=== PATIENT | female | born 1950 | race Caucasian/White ===

== ENCOUNTER 2021-09-12 18:13 | Inpatient (IN) | payer MEDICARE, MEDICAID, SELFPAY ==
--- NOTE | ~2021-09-12 | XR_ITS ---
EXAMINATION: XR foot RT min 3V DATE: 09/13/2021 02:32 INDICATION: Right foot ulcer and pain TECHNIQUE: Dorsoplantar, lateral, and 2 oblique views of the right foot were obtained. COMPARISON: None. FINDINGS: There is soft tissue swelling of the foot near the fifth metatarsal and involving the fifth toe. An old healed fracture is seen in the distal shaft of the fifth metatarsal. No definite acute u nderlying osseous abnormality is identified. 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 No acute fracture is identified. IMPRESSION: 1. Soft tissue swelling of the lateral foot near the fifth metatarsal and fifth toe without definite acute osseous abnormality. Reviewed, dictated and finalized at location A.
--- NOTE | ~2021-09-12 | US_ITS ---
EXAMINATION:US venous doppler LE BI INDICATION:Evaluate for reflux. Chronic wounds. TECHNIQUE: Multiple grayscale, color flow and Doppler images of the right lower extremity deep venous systems were obtained and reviewed. COMPARISON:No prior studies for comparison. FINDINGS: Study is limited. There is normal flow and compressibility in the right common femoral vein . There is compressibility in the right femoral vein. The remainder of the examination was not perfor med due to patient refusal. IMPRESSION: 1: Unremarkable limited right lower extremity venous Doppler. The right femoral, popliteal, posterior tibial and peroneal veins are not adequately examined. Reviewed, dictated and finalized at location B. IMPRESSION: 1: Unremarkable limited right lower extremity venous Doppler. The right femoral , popliteal, posterior tibial and peroneal veins are not adequately examined.
--- NOTE | ~2021-09-12 | XR_ITS ---
EXAM: XR tibia fibula LT 2V DATE: 09/12/2021 19:37 HISTORY: open sore . COMPARISON: None available. FINDINGS: Decreased mineralization. No fracture or dislocation. No lytic or blastic lesion. Degenera tive changes in the left knee and ankle. No erosion or periosteal change. Diffuse muscle atrophy. Pos sible soft tissue defect anteriorly at the level of the proximal tibia. IMPRESSION: No acute osseous finding in the left tibia or fibula. Reviewed, dictated and finalized at location K.
--- NOTE | ~2021-09-12 | US_ITS ---
EXAMINATION: US venous doppler UE LT DATE: 09/13/2021 13:27 INDICATION: Left upper limb deep vein thrombosis. TECHNIQUE: Grayscale ultrasound images without and with compression and Doppler ultrasound images of the left upper extremity veins were obtained. COMPARISON: None. FINDINGS: The visualized portions of the left internal jugular vein, subclavian vein, axillary vein, brachial v eins, basilic vein, cephalic vein, radial vein, and ulnar vein are patent. IMPRESSION: 1. No deep venous thrombosis. Reviewed, dictated and finalized at location A.
[2021-09-12 18:20] VITALS: BP 121/68; PULSE 82; RESP 18; TEMP 36.8; O2SAT 99
[2021-09-12 19:17] VITALS: TEMP 37.5
--- NOTE | 2021-09-12 20:04 | PC.NURSE ---
Pt resistant to all care. When attempting to draw blood pt asked several times to hold arm still and allow blood to be drawn. pt reminded of unit rules regarding verbally abusive language. Pt states her back hurts Pt has been repositioned and a pillow placed behind her back for comfort. Pt is refusing to get in to a gown and allow this RN to change her gown.
[2021-09-12 20:14] VITALS: BP 142/71; PULSE 77; RESP 24; O2SAT 98
--- NOTE | 2021-09-12 20:20 | ED.FALL ---
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 She has barely been able to get up or out of bed. No fevers or chills. According to the patient, she sees a chronic pain doctor for her legs, and she has been having more pain in her legs than usual, though she states that the skin findings are not worsening. Related Data Allergies Allergy/AdvReac Type Severity Reaction Status Date / Time No Known Allergies Allergy Verified 09/12/21 20:57 Review of Systems Review of Systems: CONST: No fever. HEENT: No sore throat C/V: No chest pain RESP: No cough GI: No nausea vomiting : No dysuria. M/S: Bilateral leg pain SKIN: Dried scabs and ulcers on leg NEURO: [No headache or focal numbness or weakness] PSYCH: [No depression] [facility] Past Medical History Medical History Back pain Surgical History Surgical History History of back surgery Exam Narrative: EXAMINATION OF ORGAN SYSTEMS/BODY AREAS: Constitutional: Vital signs per nursing GENERAL:[No acute distress, non-toxic appearing.] Unkempt HEAD: Normal with no signs of head trauma. EYES: EOMI, conjunctiva normal ENT: Hearing grossly intact LUNGS: Nonlabored breathing. HEART: [Regular rate and rhythm] ABD: [Soft], nondistended : No decubitus ulcers; old feces in diaper EXT: Normal range of motion, scabs and dried skin on both legs, ulcer LLE and R foot ulcer SKIN: per above NEURO: [Alert and oriented x 3. No gross focal sensory or strength deficits.] PSYCH: Normal affect Course Course Emergency Course: 70-year-old female presenting with bilateral leg ulcers chronic, she has been falling more frequently at home, vital signs stable, exam shows ulcers worst on the left lower leg, and an ulcer on the right foot, differential includes osteomyelitis versus pressure ulcers versus nonhealing wounds as patient has not been able to get wound care or get it cleaned or taken care of, doubt skin/soft tissue infection without overlying redness or swelling or tenderness to palpation, I will obtain labs here for further evaluation and x-rays, these showed minimally elevated WBC, however I have concerns that the patient is not going to be able to thrive at home alone, given her unkempt situation and undressed and dirty wounds, I discussed this with her sister over the phone who states that she feels the patient really should go to a nursing or assisted living, discussed with the patient who was amenable to staying in the hospital for further placement. Discussed with hospitalist who is agreeable to taking the patient. Vital Signs Vital signs: Vital Signs Temperature 98.2 F 09/12/21 18:20 Pulse Rate 82 09/12/21 18:20 Respiratory Rate 18 09/12/21 18:20 Blood Pressure 121/68 09/12/21 18:20 Pulse Oximetry 99 09/12/21 18:20 Temperature 98.3 F 09/13/21 05:40 Pulse Rate 102 H 09/13/21 05:40 Respiratory Rate 20 09/13/21 05:40 Blood Pressure 174/81 H 09/13/21 05:40 Pulse Oximetry 100 09/13/21 05:40 MDM - Fall Differential Diagnosis Differential diagnosis: Likely other Lab Data Result diagrams: 09/12/21 20:09 09/12/21 20:39 Labs: Lab Results 09/12/21 09/12/21 09/12/21 Range/Units 20:09 20:39 20:39 WBC 10.5 H (4.5-10.0) K/mm3 RBC 3.30 L (4.2-5.4) M/mm3 Hgb 10.3 L (12.0-15.0) g/dL Hct 32.8 L (37.0-47.0) % MCV 99.4 (80-100) fl MCH 31.2 (26-34) pg MCHC 31.4
[2021-09-12 20:22] LABS: Basophils Absolute Auto 0.1 K/mm3 (0.0-0.1); Basophils Percent Auto 0.5 % (0.2-1.2); Eosinophils Percent Auto 0.4 % (0-4.4); Hematocrit 32.8 % (37.0-47.0); Hemoglobin 10.3 g/dL (12.0-15.0); Immature Granulocyte Absolute 0.05 K/mm3 (0.00-0.031); Immature Granulocyte Percent A 0.5 % (0-0.5); Lymphocytes Absolute Auto 2.21 K/mm3 (0.9-3.2); Lymphocytes Percent Auto 21.1 % (18.3-44.2); Mean Corpuscular HGB Conc 31.4 g/dl (32-36); Mean Corpuscular Hemoglobin 31.2 pg (26-34); Mean Corpuscular Volume 99.4 fl (80-100); Mean Platelet Volume 10.2 fl (7.4-10.4); Monocytes Absolute Auto 0.6 K/mm3 (0.1-0.6); Monocytes Percent Auto 5.4 % (2.6-8.5); Neutrophils Absolute Auto 7.5 K/mm3 (1.3-6.7); Neutrophils Percent Auto 72.1 % (45.5-73.1); Platelet Count Result 334 k/mm3 (150-375); White Blood Count 10.5 K/mm3 (4.5-10.0)
--- NOTE | 2021-09-12 20:54 | PC.NURSE ---
delmi erp dr bose - tylenol 1gm stat
[2021-09-12] MEDS: Please add drug allergy info to patient profile. 1 EACH XX (21:03)
[2021-09-12 21:11] LABS: Anion Gap 4 mmol/L (8-16); Blood Urea Nitrogen 18 mg/dL (7-17); CRP 1.8 mg/dL (<1.0); Calcium 8.2 mg/dL (8.4-10.2); Carbon Dioxide 27 mmol/L (22-30); Chloride 101 mmol/L (98-107); Estimated CRCL calculation 56 ml/min; Estimated Glomerular Filt Rate > 60; Glucose 85 mg/dL (65-110); Potassium 3.9 mmol/L (3.4-5.0); Sodium 132 mmol/L (137-145)
[2021-09-12 21:39] VITALS: BP 124/64; PULSE 88; RESP 18; O2SAT 100
[2021-09-12 21:58] LABS: Erythrocyte Sedimentation Rate 98 mm/hr (0-20)
[2021-09-12 23:59] LABS: SARS-CoV-2 RNA PCR Negative
[2021-09-13] VITALS (9 sets, daily range): BP systolic 125–177; BP diastolic 61–95; PULSE 75–106; RESP 16–22; TEMP 36.5–37.2; O2SAT 97–100; BMI 15.3
--- NOTE | 2021-09-13 06:22 | PC.NURSE ---
This patient, Kelsey Randolph, was admitted to 3 Med Surg Room 306-01. Patient/family oriented to hospital policies and general routines including ID bracelet, bed and alarms, visiting hours, pain management, procedures, bathroom and other care routines, personal items, smoking policy, room service/diet, and visiting hours. Information on how to activate the Rapid Response Team has been discussed. Patient/Family are encouraged to report perceived risks to care and to ask questions if they do not understand what they are told or what they should do.
--- NOTE | 2021-09-13 06:50 | PC.NURSE ---
Pt is a poor historian. Plant Security Guard was not able to obtain information and pt was yelling at insurance writer to shut the door. Asked pt if she knew her home medications. Pt said yes and then was unable to tell insurance writer home medications. Spoke with pts sister Alejandra regarding patient and admission. Alejandra was able to provide some information about pt, but did not know pts home medications. Alejandra stated that a home health lady comes 3 times a week but it has been difficult for her to care for Kelsey as Kelsey is stubborn. Plant Security Guard also spoke with Alejandra regarding patient visitor hours.
--- NOTE | 2021-09-13 08:08 | PM.IMHP ---
H&P: HPI History of Present Illness Date/Time: 09/13/21 08:08 Kelsey is a 70-year-old female who reports that [facility]. However I do not have records from the [facility] records within the system. Patient is limited and a poor historian when attempting to obtain information. She refuses to answer questions. She also refuses for a physical assessment. Patient repeatedly asked for IV narcotics during my evaluation and discussion. She did not appear to be in significant amount of pain however she does appear frail and ill-appearing with minimal tremors to the upper extremities that were visualized. Patient appears unkempt. Patient did refuse a venous Doppler as well as an FABIENNE this morning. Patient also refused wound care nurse to further evaluate her for her bilateral lower extremities. Med rec is unable to be completed, will have nursing staff attempt to call patient's pharmacy. A drug screen was performed in the hospital as patient reported that she receives chronic narcotics from the [facility] however no narcotics were found in her system. Benzos were found. Patient appears to be having drug-seeking behaviors. Patient is providing limited information such as which pharmacy she utilizes for her medications. Unable to obtain accurate medication list. Patient does not seem to be compliant with medications. Chief Complaint: Bilateral lower extremity wounds Review of Systems Review of Systems: All systems reviewed & are unremarkable except as noted in HPI and below PMFSH Past Medical History Medical History Back pain Surgical History Surgical History History of back surgery Social History Social History Smoking status: Current every day smoker Tobacco type: cigarettes Second hand tobacco smoke exposure: Yes Alcohol intake: never Substance use: never Substance use type: does not use Spiritual care concerns: No Meds Home Medications and Allergies Allergies Allergy/AdvReac Type Severity Reaction Status Date / Time No Known Allergies Allergy Verified 09/12/21 20:57 Vital Signs Vital Signs - 24 hr 09/12/21 18:20 09/12/21 19:17 09/12/21 20:14 Temperature 98.2 F 99.5 F Pulse Rate 82 77 Respiratory Rate 18 24 H Blood Pressure 121/68 142/71 H Pulse Oximetry 99 98 09/12/21 21:39 09/13/21 01:18 09/13/21 05:40 Temperature 98.3 F Pulse Rate 88 106 H 102 H Respiratory Rate 18 22 H 20 Blood Pressure 124/64 177/61 H 174/81 H Pulse Oximetry 100 100 Exam Narrative: General: No acute distress. Unable to perform an accurate physical exam due to the patient's compliance. Unable to listen to heart, lungs or perform skin assessment. Patient is awake, alert and oriented to person, place and time with clear speech. Mental Status: Awake, alert and oriented to person, place, and time with clear speech. Skin: Unable to obtain Head: Normocephalic and atraumatic. Eyes: Conjunctivae are clear without exudates or hemorrhage. Sclera is non-icteric. EOM are intact, PERRLA. Ears: The external ear and canal are non-tender and without swelling or discharge. Throat: Oral mucosa pink and moist with poor dentition. Tongue midline. Neck: Trachea midline. Cardiac: Unable to obtain Respiratory: Chest wall symmetric, nontender and without deformity or trauma. Respirations even and unlabored. Abdominal: Unable to obtain Spine: Neck and back with grossly normal curvature, no deformity in appearance or signs of trauma. Extremities: Upper and lower extremities atraumatic without tenderness or deformity. Full range of motion and muscle strength 4/5 to all extremities bilaterally. Neurological: Full and symmetric motor and light touch sensation bilaterally. Cranial nerves II-XII grossly intact. H&P: Results La
[2021-09-13 09:37] LABS: Albumin Level 3.8 g/dL (3.5-5.1)
[2021-09-13 09:47] LABS: Prealbumin 15.1 mg/dL (17.6-36.0)
[2021-09-13] MEDS: ACETAMINOPHEN 325 MG TABLET 650 MG PO (10:07)
[2021-09-13] MEDS: SODIUM CHLORIDE 0.9% IV 1,000 ML 50 ML IV CONT (10:09)
[2021-09-13] MEDS: NICOTINE (*PBKC) 14 MG PATCH 1 PATCH TRANSDERM (10:36)
[2021-09-13 11:23] LABS: Amphetamine Screen Urine Negative (Negative); Barbiturate Screen Urine Negative (Negative); Benzodiazepines Screen Urine Positive (Negative); Cannabinoid Screen Urine Negative (Negative); Cocaine Screen Urine Negative (Negative); Methadone Screen Urine Negative (Negative); Opiate Screen Urine Negative (Negative); Phencyclidine Screen Urine Negative (Negative)
--- NOTE | 2021-09-13 11:31 | PCNSR ---
On 09/13/21, the student, Albino Gutierrez, provided care and completed [facility] documentation on this patient. I have reviewed the student's documentation and agree with the findings.
--- NOTE | 2021-09-13 12:23 | ECHO_ITS ---
Patient Info Name: Kelsey Randolph Age: 70 years : 1950 Gender: Female Ht: 63 in Wt: 86 lbs BSA: 1.30 m2 HR: 82 bpm BP: 145 / 95 mmHg Heart Rhythm: Sinus Rhythm Technical Quality: Fair Exam Date: 09/13/2021 3:35 PM Exam Location: [facility] Pulmonary Exam Room: [facility] Patient Status: Inpatient Admit Date: 09/13/2021 Staff Ordering Physician: Kary Navarrete APRN Leather Grainer: Nikole Joshua RDCS Attending Provider: Vida Osorio DO Referring Physician: Landon PALOMO; Exam Type: CA echo doppler color flow Study Info Indications - SOB Complete two-dimensional, color flow and Doppler transthoracic echocardiogram is performed. Summary 1. Complete two-dimensional, color flow and Doppler transthoracic echocardiogram is performed. 2. Left ventricular chamber dimension is normal. 3. Left ventricular systolic function is normal, estimated at 65-70%. 4. There is mildly increased left ventricular wall thickness. 5. The left ventricular diastolic function is grade I diastolic dysfunction. 6. The basal inferoseptal, and mid inferoseptal are hypokinetic. 7. Left atrial chamber dimension is mildly enlarged. 8. There is mild mitral valve regurgitation. 9. The mitral valve has thickened leaflets. 10. There is moderate aortic valve sclerosis. 11. There is mild tricuspid valve regurgitation. 12. Mild pulmonary hypertension, estimated pulmonary arterial systolic pressure is 40 mmHg. Left Ventricle Left ventricular chamber dimension is normal. Left ventricular systolic function is normal, estimated at 65-70%. There is mildly increased left ventricular wall thickness. The left ventricular diastolic function is grade I diastolic dysfunction. The basal inferoseptal, and mid inferoseptal are hypokinetic. All other olivas appear normal. Right Ventricle Right ventricular chamber dimension is normal. Right ventricular systolic function is normal. Left Atria Left atrial chamber dimension is mildly enlarged. Right Atria Right atrial chamber dimension is normal. Atrial Septum Intact interatrial septum visualized by color flow imaging. Aortic Valve The aortic valve is trileaflet. There is moderate aortic valve sclerosis. There is no aortic valve stenosis. There is trace aortic valve regurgitation. Pulmonic Valve The pulmonic valve is normal. There is no pulmonic valve stenosis. There is trace pulmonic regurgitation. Mitral Valve The mitral valve has thickened leaflets. There is no mitral valve stenosis. There is mild mitral valve regurgitation. Tricuspid Valve The tricuspid valve leaflets are normal. There is no significant tricuspid valve stenosis. There is mild tricuspid valve regurgitation. Mild pulmonary hypertension, estimated pulmonary arterial systolic pressure is 40 mmHg. Pericardium/Pleural The pericardium appears normal. There is trivial pericardial effusion. Inferior Vena Cava Dilated inferior vena cava with <50% collapse upon inspiration consistent with elevated right atrial pressure, 10 mmHg. Aorta The aortic root size at the sinus of Valsalva is normal. Left Ventricular Outflow Tract Name Value Normal LVOT 2D LVOT Diameter 2.0
--- NOTE | 2021-09-13 14:01 | PCPTNOTE ---
Attempted physical therapy evaluation, patient and patient's family refused therapy at this time due to patient not getting her medications at this time and Bilateral LE ulcers. Will Follow.
--- NOTE | 2021-09-13 14:07 | PCOTNOTE ---
Attempted occupational therapy evaluation, patient and patient's family refused therapy at this time due to patient not getting her medications at this time and Bilateral LE ulcers. Will Follow.
[2021-09-13] MEDS: IBUPROFEN 400 MG TABLET PO (14:37)
[2021-09-13] MEDS: FLUTICASONE/SALMETEROL 115-21 MCG INHALER 1 PUFF 2 PUFF INHALATION (20:10)
[2021-09-13] MEDS: GABAPENTIN 300 MG CAPSULE PO (21:12)
[2021-09-13] MEDS: DOXEPIN HCL 10 MG CAPSULE PO (21:12)
[2021-09-13] MEDS: TIZANIDINE HCL 2 MG TABLET PO (21:12)
[2021-09-14] VITALS (7 sets, daily range): BP systolic 128–169; BP diastolic 60–86; PULSE 63–110; RESP 18–20; TEMP 36.6; O2SAT 94–100
[2021-09-14] MEDS: GABAPENTIN 300 MG CAPSULE PO ×3 (05:31→21:13)
[2021-09-14] MEDS: TIZANIDINE HCL 2 MG TABLET PO ×3 (05:31→21:13)
[2021-09-14 06:22] LABS: Basophils Percent Auto 0.4 % (0.2-1.2); Eosinophils Absolute Auto 0.1 K/mm3 (0-0.3); Eosinophils Percent Auto 0.6 % (0-4.4); Hematocrit 30.2 % (37.0-47.0); Hemoglobin 9.8 g/dL (12.0-15.0); Immature Granulocyte Absolute 0.03 K/mm3 (0.00-0.031); Immature Granulocyte Percent A 0.4 % (0-0.5); Lymphocytes Absolute Auto 1.69 K/mm3 (0.9-3.2); Lymphocytes Percent Auto 21.6 % (18.3-44.2); Mean Corpuscular HGB Conc 32.5 g/dl (32-36); Mean Corpuscular Volume 95.6 fl (80-100); Mean Platelet Volume 9.4 fl (7.4-10.4); Monocytes Absolute Auto 0.8 K/mm3 (0.1-0.6); Monocytes Percent Auto 10.4 % (2.6-8.5); Neutrophils Absolute Auto 5.2 K/mm3 (1.3-6.7); Neutrophils Percent Auto 66.6 % (45.5-73.1); Platelet Count Result 282 k/mm3 (150-375); Red Blood Count 3.16 M/mm3 (4.2-5.4); Red Cell Distribution Width 15.3 % (11.5-14.5); White Blood Count 7.8 K/mm3 (4.5-10.0)
[2021-09-14 06:41] LABS: Lactic Acid Reflex 0.8 mmol/L (0.7-2.0)
[2021-09-14 06:54] LABS: Alanine Aminotransferase 16 U/L (6-35); Albumin Level 2.7 g/dL (3.5-5.1); Alkaline Phosphatase 79 U/L (38-126); Anion Gap 4 mmol/L (8-16); Aspartate Amino Transferase 32 U/L (14-36); Bilirubin,Total 0.3 mg/dL (0.2-1.3); Blood Urea Nitrogen 9 mg/dL (7-17); CRP 2.7 mg/dL (<1.0); Calcium 7.7 mg/dL (8.4-10.2); Carbon Dioxide 31 mmol/L (22-30); Chloride 98 mmol/L (98-107); Estimated CRCL calculation 47 ml/min; Estimated Glomerular Filt Rate > 60; Glucose 117 mg/dL (65-110); Magnesium 1.8 mg/dL (1.6-2.3); Potassium 2.6 mmol/L (3.4-5.0); Sodium 133 mmol/L (137-145)
[2021-09-14 07:40] LABS: Thyroid Stimulating Hormone Reflex 0.608 uIU/mL (0.465-4.68)
[2021-09-14] MEDS: FLUTICASONE/SALMETEROL 115-21 MCG INHALER 1 PUFF 2 PUFF INHALATION ×2 (08:27→19:43)
[2021-09-14] MEDS: POTASSIUM CHLORIDE 20 MEQ TABLET.ER 40 MEQ PO (10:04)
[2021-09-14] MEDS: POTASSIUM CHLORIDE INJ 40 MEQ in SODIUM CHLORIDE 0.9% IV 500 ML 130 MEQ IVPB ×2 (10:04→10:06)
[2021-09-14] MEDS: POTASSIUM CHLORIDE 10 MEQ TABLET.ER PO (10:05)
[2021-09-14] MEDS: NICOTINE (*PBKC) 14 MG PATCH 1 PATCH TRANSDERM (10:05)
--- NOTE | 2021-09-14 11:43 | PM.IMPN ---
Progress Note: A&P Assessment and Plan (1) Bilateral leg ulcer: Qualifiers: Non-pressure ulcer stage: limited to breakdown of skin Qualified Code(s): L97.911 - Non-pressure chronic ulcer of unspecified part of right lower leg limited to breakdown of skin; L97.921 - Non-pressure chronic ulcer of unspecified part of left lower leg limited to breakdown of skin Code(s): L97.919 - Non-pressure chronic ulcer of unspecified part of right lower leg with unspecified severity; L97.929 - Non-pressure chronic ulcer of unspecified part of left lower leg with unspecified severity Status: Acute Assessment and Plan: Monitor I&Os, vital signs, neuro status and patient is a fall risk Monitor serum electrolytes, CBC, WBC, temperature curve and follow cultures Provide IV fluid resuscitation for hemodynamic stability IV Vancomycin, consult pharmacy to dose, send Vancomycin trough levels before 4th dose, and Zosyn 3.375mg Q 6 hours. Will transition IV antibiotics to oral on 09/15/2021. Echocardiogram revealed thickened leaflets with an LVEF is 65-70 % with pulmonary hypertension. Obtain bilateral lower extremity venous Dopplers and ABIs, patient refused FABIENNE and only allowed 1 extremity did have a venous Doppler. P.r.n. Tylenol, Zofran, and melatonin (2) Frequent falls: Code(s): R29.6 - Repeated falls Status: Acute Assessment and Plan: PT/OT consulted for evaluation and treatment Case management consulted for possible placement (3) Protein-calorie malnutrition, severe: Code(s): E43 - Unspecified severe protein-calorie malnutrition Status: Acute Assessment and Plan: Consulted registered dietitian Regular diet, consider adding supplements (4) Hyponatremia: Code(s): E87.1 - Hypo-osmolality and hyponatremia Status: Acute Assessment and Plan: Monitor serum electrolytes (5) Sepsis: Code(s): A41.9 - Sepsis, unspecified organism Status: Acute Assessment and Plan: 2/2 above, bilateral leg ulcers (6) Tobacco abuse: Code(s): Z72.0 - Tobacco use Status: Acute Assessment and Plan: Smoking cessation counseling given for 3 minutes, will add nicotine patch daily (7) Drug-seeking behavior: Code(s): Z76.5 - Malingerer [conscious simulation] Status: Acute Assessment and Plan: Drug screen positive for Benzos Negative for Narcotics, patient reports she follows pain clinic and requesting for IV narcotics Subjective Date/time seen: 09/14/21 11:43 Patient is oddly pleasant this morning. Patient reports that she slept very well last night and is happy she received some of her medications this morning. Discussed that her potassium was at 2.9. And her echocardiogram results with pulmonary hypertension and a normal LVEF. Patient continues on antibiotics for multiple leg ulcers to bilateral lower extremities. Patient reports she is okay not having further workup at this point for her legs. She refused the FABIENNE yesterday and only received half of the venous Doppler to 1 extremity. Patient will continue on oral antibiotics today with bactrim. Review of Systems Review of Systems: All systems reviewed & are unremarkable except as noted in HPI and below Exam Narrative: General: No acute distress. Unable to perform an accurate physical exam due to the patient's compliance. Unable to listen to heart, lungs or perform skin assessment. Patient is awake, alert and oriented to person, place and time with clear speech. Mental Status: Awake, alert and oriented to person, place, and time with clear speech. Skin: Unable to obtain Head: Normocephalic and atraumatic. Eyes: Conjunctivae are clear without exudates or hemorrhage. Sclera is non-icteric. EOM are intact, PERRLA. Ears: The external ear and canal are non-tender and without swelling or discharge. Throat: Oral mucosa pink and moist with poor dentition. Tongue midline. Neck: Trachea
--- NOTE | 2021-09-14 14:39 | PC.NURSE ---
Pt's sister, Ira, called wanting an update. I answered her questions and gave her the information she was seeking. She stated that she would speak with their other sister and see if they could persuade her to allow treatment, testing, etc. that pt refused up to this point.
[2021-09-14] MEDS: SODIUM CHLORIDE 0.9% IV 100 ML 50 ML (15:55)
[2021-09-14] MEDS: DOXEPIN HCL 10 MG CAPSULE PO (20:41)
[2021-09-14] MEDS: IBUPROFEN 400 MG TABLET PO (20:47)
[2021-09-15 05:42] VITALS: BP 153/70; PULSE 85; RESP 20; TEMP 36.4; O2SAT 100
[2021-09-15] MEDS: TIZANIDINE HCL 2 MG TABLET PO (05:50)
[2021-09-15] MEDS: GABAPENTIN 300 MG CAPSULE PO (05:50)
[2021-09-15 06:24] LABS: Basophils Percent Auto 0.5 % (0.2-1.2); Eosinophils Absolute Auto 0.1 K/mm3 (0-0.3); Eosinophils Percent Auto 1.2 % (0-4.4); Hematocrit 30.6 % (37.0-47.0); Hemoglobin 9.7 g/dL (12.0-15.0); Immature Granulocyte Absolute 0.06 K/mm3 (0.00-0.031); Immature Granulocyte Percent A 0.7 % (0-0.5); Lymphocytes Percent Auto 23.8 % (18.3-44.2); Mean Corpuscular HGB Conc 31.7 g/dl (32-36); Mean Corpuscular Hemoglobin 31.4 pg (26-34); Mean Platelet Volume 9.6 fl (7.4-10.4); Monocytes Absolute Auto 0.9 K/mm3 (0.1-0.6); Neutrophils Absolute Auto 5.6 K/mm3 (1.3-6.7); Neutrophils Percent Auto 63.8 % (45.5-73.1); Platelet Count Result 270 k/mm3 (150-375); Red Blood Count 3.09 M/mm3 (4.2-5.4); Red Cell Distribution Width 15.7 % (11.5-14.5); White Blood Count 8.8 K/mm3 (4.5-10.0)
[2021-09-15 06:39] LABS: Alanine Aminotransferase 20 U/L (6-35); Albumin Level 2.6 g/dL (3.5-5.1); Alkaline Phosphatase 77 U/L (38-126); Anion Gap 3 mmol/L (8-16); Aspartate Amino Transferase 44 U/L (14-36); Bilirubin,Total < 0.1 mg/dL (0.2-1.3); Blood Urea Nitrogen 12 mg/dL (7-17); Calcium 7.8 mg/dL (8.4-10.2); Carbon Dioxide 29 mmol/L (22-30); Chloride 108 mmol/L (98-107); Estimated CRCL calculation 55 ml/min; Estimated Glomerular Filt Rate > 60; Glucose 90 mg/dL (65-110); Potassium 3.7 mmol/L (3.4-5.0); Sodium 140 mmol/L (137-145)
[2021-09-15 08:00] VITALS: O2SAT 100
[2021-09-15] MEDS: FLUTICASONE/SALMETEROL 115-21 MCG INHALER 1 PUFF 2 PUFF INHALATION (08:13)
[2021-09-15 08:14] VITALS: O2SAT 94
[2021-09-15] MEDS: POTASSIUM CHLORIDE 20 MEQ TABLET.ER 40 MEQ PO (09:52)
[2021-09-15] MEDS: ACETAMINOPHEN 325 MG TABLET 650 MG PO (09:52)
[2021-09-15] MEDS: POTASSIUM CHLORIDE 10 MEQ TABLET.ER PO (09:52)
--- NOTE | 2021-09-15 09:58 | PM.DS ---
DS: Admitting Diagnosis Discharge Date 09/15/21 Admitting Diagnosis Bilateral chronic leg ulcers DS: Discharge Diagnosis Discharge Diagnosis (1) Bilateral leg ulcer: Qualifiers: Non-pressure ulcer stage: limited to breakdown of skin Qualified Code(s): L97.911 - Non-pressure chronic ulcer of unspecified part of right lower leg limited to breakdown of skin; L97.921 - Non-pressure chronic ulcer of unspecified part of left lower leg limited to breakdown of skin Code(s): L97.919 - Non-pressure chronic ulcer of unspecified part of right lower leg with unspecified severity; L97.929 - Non-pressure chronic ulcer of unspecified part of left lower leg with unspecified severity Status: Acute Assessment and Plan: Monitor I&Os, vital signs, neuro status and patient is a fall risk Monitor serum electrolytes, CBC, WBC, temperature curve and follow cultures Provide IV fluid resuscitation for hemodynamic stability IV Vancomycin, consult pharmacy to dose, send Vancomycin trough levels before 4th dose, and Zosyn 3.375mg Q 6 hours. Will transition IV antibiotics to oral on 09/15/2021. Echocardiogram revealed thickened leaflets with an LVEF is 65-70 % with pulmonary hypertension. Obtain bilateral lower extremity venous Dopplers and ABIs, patient refused FABIENNE and only allowed 1 extremity did have a venous Doppler. P.r.n. Tylenol, Zofran, and melatonin --chronic patient will need to [facility]up [facility] in the outpatient basis. (2) Frequent falls: Code(s): R29.6 - Repeated falls Status: Acute Assessment and Plan: PT/OT consulted for evaluation and treatment Case management consulted for possible placement (3) Protein-calorie malnutrition, severe: Code(s): E43 - Unspecified severe protein-calorie malnutrition Status: Acute Assessment and Plan: Consulted registered dietitian Regular diet, consider adding supplements (4) Hyponatremia: Code(s): E87.1 - Hypo-osmolality and hyponatremia Status: Acute Assessment and Plan: Monitor serum electrolytes (5) Sepsis: Code(s): A41.9 - Sepsis, unspecified organism Status: Acute Assessment and Plan: 2/2 above, bilateral leg ulcers (6) Tobacco abuse: Code(s): Z72.0 - Tobacco use Status: Acute Assessment and Plan: Smoking cessation counseling given for 3 minutes, will add nicotine patch daily (7) Drug-seeking behavior: Code(s): Z76.5 - Malingerer [conscious simulation] Status: Acute Assessment and Plan: Drug screen positive for Benzos Negative for Narcotics, patient reports she follows pain clinic and requesting for IV narcotics DS: Summary Hospital Course Reason for hospitalization: Pain to bilateral lower extremities/wounds Hospital Course: 70-year-old female who reports that [facility]. However I do not have records from the [facility] records within the system. Patient is limited and a poor historian when attempting to obtain information. She refuses to answer questions. She also refuses for a physical assessment. Patient repeatedly asked for IV narcotics during my evaluation and discussion. She did not appear to be in significant amount of pain however she does appear frail and ill-appearing with minimal tremors to the upper extremities that were visualized. Patient appears unkempt. Patient did refuse a venous Doppler as well as an FABIENNE this morning. Patient also refused wound care nurse to further evaluate her for her bilateral lower extremities. Med rec is unable to be completed, will have nursing staff attempt to call patient's pharmacy. A drug screen was performed in the hospital as patient reported that she receives chronic narcotics from the [facility] however no narcotics were found in her system. Benzos were found. Patient appears to be having drug-seeking behaviors. Patient was providing limit
== END 2021-09-15 11:56 | disposition home or self-care (01) | DRG 871 ==
LOC: ANHED 21:35 → ANH3MEDSUR 09-13 04:18
PROVIDERS: Admitting Provider Internal Medicine; Emergency Provider Emergency Medicine; PCP Internal Medicine; Visit Provider Nurse Practitioner Family
DX: A41.9 Sepsis, unspecified organism (principal); E43 Unspecified severe protein-calorie malnutrition; L97.911 Non-pressure chronic ulcer of unspecified part of right lower leg limited to breakdown of skin; E87.1 Hypo-osmolality and hyponatremia; L97.921 Non-pressure chronic ulcer of unspecified part of left lower leg limited to breakdown of skin; Z68.1 Body mass index [BMI] 19.9 or less, adult; Z20.822 Contact with and (suspected) exposure to COVID-19; R29.6 Repeated falls; Z72.0 Tobacco use; Z76.5 Malingerer [conscious simulation]; Z91.81 History of falling; M79.605 Pain in left leg; M79.604 Pain in right leg
CPT/HCPCS: 36415; 73590; 73630; 80048; 80053; 80307; 82040; 83605; 83735; 84132; 84134; 84443; 85025; 85652; 86140; 87040; 87070; 87077; 87147; 87181; 87186; 87205; 93306; 93970; 93971; 94640; 96365; 96366; 96367; 97161; 97165; 97535; 99285; A9270; C9803; G0378; J0131; J2543; J3370; J3480; J7030; J7040; U0003; U0005

== ENCOUNTER 2024-02-27 10:19 | Outpatient (CLI) | payer MEDICARE, MEDICAID, SELFPAY ==
--- NOTE | ~2024-02-27 | CT_ITS ---
EXAMINATION: CT abdomen pelvis w con DATE: 02/27/2024 10:53 INDICATION: Abdominal pain. TECHNIQUE: Computed tomography (CT) of the abdomen and pelvis was performed with 100 mL Omnipaque 350 intravenous contrast. Automated exposure control and iterative reconstruction technique were employe d. The dose-length product was 209.90 mGy-cm. COMPARISON: None. FINDINGS: The visualized portions of the lung bases demonstrate emphysema and mild atelectasis. No pl eural effusion. The heart size is normal. No pericardial effusion. Breast implants are noted. There i s a 2.2 cm hypodense mass in right hepatic lobe. The gallbladder is normal. There are two hypodense m asses in the spleen measuring up to 13 mm. The pancreas and adrenal glands are normal. There is a 5 m m stone in right kidney. There is cortical thinning of the kidneys. There is a 2.7 cm cyst in left ki dney. There are no dilated loops of bowel. The appendix is not visualized. There are no pathologicall y enlarged lymph nodes. There is no free intraperitoneal fluid. There is mild lumbar spondylosis. IMPRESSION: 1. 2.2 cm liver mass. The differential diagnosis is broad and includes metastatic disease, abscess, a nd benign mass such as cyst. Consider abdomen MRI without and with contrast. 2. Two hypodense masses in the spleen measuring up to 13 mm, most likely benign masses such as granul omatous disease. Reviewed, dictated and finalized at location B. IMPRESSION: 1. 2.2 cm liver mass. The differential diagnosis is broad and includes metastat ic disease, abscess, and benign mass such as cyst. Consider abdomen MRI without and with contrast. 2. Two hypodense masses in the spleen measuring up to 13 mm, most likely benign masses such as granulomatous disease.
[2024-02-27 10:43] LABS: Estimated Glomerular Filt Rate > 60
== END 2024-02-27 10:20 | disposition home or self-care (01) ==
LOC: MICIMG 10:22
PROVIDERS: PCP Internal Medicine Infectious Disease; Visit Provider Internal Medicine Infectious Disease
DX: R10.9 Unspecified abdominal pain (principal); K76.89 Other specified diseases of liver
CPT/HCPCS: 74177; Q9967

== ENCOUNTER 2024-03-15 09:41 | Outpatient (CLI) | payer MEDICARE, MEDICAID, SELFPAY ==
--- NOTE | ~2024-03-15 | MR_ITS ---
EXAMINATION: MR abdomen wo/w con DATE: 03/15/2024 10:56 INDICATION: Hepatomegaly, not elsewhere classified. Liver mass. TECHNIQUE: Magnetic resonance imaging (MRI) of the abdomen was performed without and with 8 mL MultiH ance intravenous contrast. COMPARISON: CT abdomen and pelvis 02/27/2024 FINDINGS: Breast implants are noted. There is a 3.4 x 1.4 cm enhancing mass right hepatic lobe. There is a 1.5 cm enhancing mass in right hepatic lobe. These masses are occult on delayed postcontrast images. The gallbladder, spleen, pancreas, adrenal glands, and right kidney are normal. There are cysts in left k idney measuring up to 2.6 cm. There are no dilated loops of bowel. There are no pathologically enlarg ed lymph nodes. There is no free intraperitoneal fluid. IMPRESSION: 1. Two nonspecific liver masses measuring up to 3.4 cm suspicious for focal nodular hyperplasia versu s infection versus metastatic disease. The location at the liver dome makes biopsy challenging. Consi june PET/CT. Reviewed, dictated and finalized at location A. [facility] IMPRESSION: 1. Two nonspecific liver masses measuring up to 3.4 cm suspicious for focal nod ular hyperplasia versus infection versus metastatic disease. The location at th e liver dome makes biopsy challenging. Consider PET/CT.
== END 2024-03-15 09:42 | disposition home or self-care (01) ==
LOC: MICIMG 09:43
PROVIDERS: PCP Internal Medicine Infectious Disease; Visit Provider Internal Medicine Infectious Disease
DX: R16.0 Hepatomegaly, not elsewhere classified (principal)
CPT/HCPCS: 74183; A9577

== ENCOUNTER 2024-06-24 08:51 | Outpatient (CLI) | payer MEDICARE, MEDICAID, SELFPAY ==
[2024-06-24 09:28] LABS: Glucose Point of Care 102 mg/dl (65-105)
== END 2024-06-24 08:52 | disposition home or self-care (01) ==
LOC: ANHIMG 08:54
PROVIDERS: PCP Internal Medicine Infectious Disease; Visit Provider Internal Medicine Infectious Disease
DX: R93.2 Abnormal findings on diagnostic imaging of liver and biliary tract (principal); N20.0 Calculus of kidney
CPT/HCPCS: 78815; A9552